=== PATIENT | male | born 1995 | race Caucasian/White ===

== ENCOUNTER 2016-10-24 20:43 | Observation (INO) | payer BC ==
[2016-10-24] MEDS ORDERED: MORPHINE SULFATE 2 MG/ML DISP.SYRIN IV ONE (21:04)
[2016-10-24] MEDS ORDERED: ONDANSETRON HCL/PF 2 MG/ML VIAL IV ONE (21:04)
[2016-10-24] MEDS ORDERED: ONDANSETRON HCL/PF 2 MG/ML VIAL ONE (21:05)
[2016-10-24] MEDS ORDERED: MORPHINE SULFATE 2 MG/ML DISP.SYRIN ONE (21:05)
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
[2016-10-24] MEDS ORDERED: MORPHINE SULFATE 4 MG/ML SYRG IV ONE (21:43)
[2016-10-24] MEDS ORDERED: MORPHINE SULFATE 4 MG/ML SYRG ONE (21:49)
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
[2016-10-24] MEDS: MORPHINE SULFATE 4 MG/ML SYRG IV PRN ×2 (22:44→23:46)
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
[2016-10-25 00:55] LABS: Hematocrit 45.9 % (42.0-52.0); Hemoglobin 16.1 gm/dL (13.5-18.0); Mean Cell Volume 91.3 fl (78-100); Mean Corpuscular Hgb Conc 35.1 g/dl (32-36); Mean Platelet Volume 11.3 fl (6.0-9.5); Neutrophil # 11.5 K/mm3 (1.3-6.0); Neutrophil % 81.3 % (42-75.0); Platelet Count 154 K/mm3 (150-450); Red Blood Count 5.03 M/mm3 (4.7-6.0); Red Cell Distribution Width 11.8 % (11.5-14.0); White Blood Count 14.2 K/mm3 (4.0-10.5)
[2016-10-25 01:14] LABS: Anion Gap 15.2 mmol/L (6.8-13.8); BUN/Creatinine Ratio 25.3 (9.0-21.6); Calcium * 8.9 mg/dL (7.9-10.9); Carbon Dioxide 27.5 mmol/L (24-32.6); Estimated Creat Clear 126.8; Potassium 3.7 mmol/L (3.4-4.6)
[2016-10-25] MEDS: HYDROmorphone HCL 1 MG/ML DISP.SYRIN IV PRN ×13 (01:57→23:18)
[2016-10-25] MEDS: NORMAL SALINE 1,000 ML IV PRN ×3 (02:06→14:15)
[2016-10-25] MEDS ORDERED: ALBUTEROL SULFATE 2.5 MG/0.5 ML VIAL.NEB IH PRN (04:21)
[2016-10-25] MEDS ORDERED: ALBUTEROL SULFATE 2.5 MG/3 ML VIAL.NEB IH PRN (06:11)
[2016-10-25] MEDS: ONDANSETRON HCL/PF 2 MG/ML VIAL IV PRN ×3 (08:37→19:15)
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
[2016-10-25] MEDS: ceFAZolin SODIUM 1 GM VIAL IV PRN ×2 (14:20→14:26)
[2016-10-25] MEDS ORDERED: RINGER'S SOLUTION,LACTATED 1,000 ML IV ONE (15:15)
[2016-10-25] MEDS ORDERED: PROMETHAZINE HCL 5 MG in DEXTROSE 5 % IN WATER 50 ML IV PRN ×2 (16:31)
[2016-10-25] MEDS ORDERED: ACETAMINOPHEN 500 MG TABLET PO PRN (16:31)
[2016-10-25] MEDS ORDERED: DEXTROSE 5%-LACTATED RINGERS 1,000 ML IV PRN (16:31)
[2016-10-25] MEDS ORDERED: MAGNESIUM HYDROXIDE 30 ML UDC PO PRN (16:31)
[2016-10-25] MEDS ORDERED: MAG HYDROX/ALUMINUM HYD/SIMETH 30 ML UDC PO PRN (16:31)
[2016-10-25] MEDS ORDERED: ZOLPIDEM TARTRATE 5 MG TABLET PO PRN (16:31)
[2016-10-25] MEDS ORDERED: diphenhydrAMINE HCL 50 MG/ML VIAL IV PRN (16:31)
[2016-10-25] MEDS ORDERED: ONDANSETRON HCL/PF 2 MG/ML VIAL IV PRN (16:31)
[2016-10-25] MEDS: oxyCODONE HCL/ACETAMINOPHEN 1 TAB TABLET PO PRN ×2 (18:40→22:28)
[2016-10-25] MEDS: ceFAZolin SODIUM 1 GM in DEXTROSE 5 % IN WATER 100 ML IV SCH ×2 (20:59)
[2016-10-25] MEDS ORDERED: SENNOSIDES/DOCUSATE SODIUM 1 TAB TABLET PO SCH (21:00)
[2016-10-26] MEDS: HYDROmorphone HCL 1 MG/ML DISP.SYRIN IV PRN ×2 (00:34→01:49)
[2016-10-26] MEDS: ceFAZolin SODIUM 1 GM in DEXTROSE 5 % IN WATER 100 ML IV SCH ×4 (01:50→07:31)
[2016-10-26] MEDS: oxyCODONE HCL/ACETAMINOPHEN 1 TAB TABLET PO PRN ×2 (02:58→07:29)
[2016-10-26] MEDS: ONDANSETRON HCL/PF 2 MG/ML VIAL IV PRN (03:06)
[2016-10-26 07:31] VITALS: BP 136/76
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
== END 2016-10-26 10:20 | disposition home or self-care (01) ==
LOC: ER 20:43 → INTOOBSV 22:09 → MS 22:09
PROVIDERS: ADMIT Nurse Practitioner; ATTEND Internal Medicine
PROC: 2W3MX1Z Immobilization of Left Lower Extremity using Splint (ICD-10-PCS; principal; 2016-10-24)
PROC: 0QSH06Z Reposition Left Tibia with Intramedullary Internal Fixation Device, Open Approach (ICD-10-PCS; 2016-10-25)
PROC: 0QSKXZZ Reposition Left Fibula, External Approach (ICD-10-PCS; 2016-10-25)
DX: S82.232A Displaced oblique fracture of shaft of left tibia, initial encounter for closed fracture (principal); S82.452A Displaced comminuted fracture of shaft of left fibula, initial encounter for closed fracture; S50.811A Abrasion of right forearm, initial encounter; Z87.81 Personal history of (healed) traumatic fracture; V29.88XA Motorcycle rider (driver) (passenger) injured in other specified transport accidents, initial encounter; Y92.414 Local residential or business street as the place of occurrence of the external cause; Z87.891 Personal history of nicotine dependence
CPT/HCPCS: 27759; 29505; 36415; 73590; 76000; 80048; 85025; 96374; 96375; 96376; 97161; 97165; 99284; G0378; J2405

== ENCOUNTER 2017-04-13 15:13 | Emergency (ER) | payer BC ==
[2017-04-13] MEDS ORDERED: DIPHTH,PERTUSS(ACELL),TET VAC 0.5 ML VIAL IM ONE ×2 (15:34→15:42)
[2017-04-13 16:32] VITALS: BP 130/84
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
== END 2017-04-13 17:20 | disposition home or self-care (01) ==
LOC: ER 15:13
DX: S09.90XA Unspecified injury of head, initial encounter (principal); S60.511A Abrasion of right hand, initial encounter; S50.811A Abrasion of right forearm, initial encounter; S60.812A Abrasion of left wrist, initial encounter; M79.1 Myalgia; V29.9XXA Motorcycle rider (driver) (passenger) injured in unspecified traffic accident, initial encounter; Y93.I9 Activity, other involving external motion; Y92.414 Local residential or business street as the place of occurrence of the external cause; Z23 Encounter for immunization